=== PATIENT | male | born 2000 | race African-American/Black ===

== ENCOUNTER 2020-11-18 20:23 | Emergency (ER) | payer OTHER ==
[~2020-11-18 20:23] MED LIST: CYCLOBENZAPRINE10 MG PO; IBUPROFEN800 MG PO; MEDROL 4MG DOSEP4 MG PO
[2020-11-19] MEDS ORDERED: ILOTYCIN1 GM OD (00:12)
== END 2020-11-19 00:29 | disposition home or self-care (01) ==
LOC: FER 20:23
DX: H10.9 Unspecified conjunctivitis (principal); Z87.09 Personal history of other diseases of the respiratory system
CPT/HCPCS: 99282